=== PATIENT | female | born 1935 | race Caucasian/White ===

== ENCOUNTER 2023-05-15 17:31 | Emergency (ER) | payer OTHER, SELFPAY ==
[2023-05-15 17:35] VITALS: BMI 26.5
[2023-05-15 17:38] VITALS: BP 151/75
[2023-05-15 19:59] VITALS: BP 135/78
[2023-05-15] MEDS: TYLENOL 650 MG PO (22:15)
--- NOTE | 2023-05-15 22:20 | ED.GENMED ---
History of Present Illness
General
Chief Complaint: Fall
Source: patient
Exam Limitations: none
Time Seen by Provider: 05/15/23 19:54
Nursing documentation reviewed up to this point in time: agreed with
Travel History
Have you had any contact with someone who has COVID-19?: No
Do you have any symptoms of coronavirus? Fever > 100 degrees, chills, cough, shortness of breath, sore throat, loss of taste or smell, muscle aches, or headache?: No
History of Present Illness
History of Present Illness:
Patient presents to ED after slipping and losing balance, and falling forward. Patient presents with small laceration in her left forehead as well as a lip laceration, along with chipped tooth. Denies loss of consciousness. Denies neck pain.
Denies chest pain. Denies shortness of breath. Denies nausea or vomiting. Denies loss of sensation or weakness. Denies blurred vision. Denies dizziness.
Review of Systems
Review of Systems
Allergies reviewed?: Yes
All Other Systems: ROS reviewed and negative except as documented in HPI and ROS
Constitutional: Reports no symptoms
EENT: Reports no symptoms
Respiratory: Reports no symptoms; Denies trouble breathing
Cardiac: Reports no symptoms; Denies chest pain
ABD/GI: Reports no symptoms; Denies nausea or vomiting
: Reports no symptoms
Musculoskeletal: Reports no symptoms
Skin: Reports other (Laceration, abrasion, broken tooth)
Neurological: Reports no symptoms; Denies dizzy, headache or weakness
Phy Exam
Physical Exam
Physical Exam:
Physical Exam
General: no apparent distress, not acutely ill. afebrile.
Head: eomi. an approx 1cm linear, superficial laceration lateral to left eyebrow, without active bleeding.
Neck: supple. no meningeal signs.
Heart: s1/s2 regular rate and rhythm, no murmur. equal radial pulses.
Lungs: no acute respiratory distress. clear bilaterally
Abdomen: normal bowel sounds. not tender.
Neuro: alert and oriented. no focal neurological deficits
Skin: an abrasion noted over left lower lip, without separation, but with swelling. #10 tooth fracture noted.
Psychiatric: well kept. interactive and cooperative
Extremities: no edema. no calf tenderness.
Course
Orders/Labs/Results
Orders:
Orders
05/15/23 20:07
CT Head W/o Iv Contrast Urgent
Comment:
Reason For Exam: trauma
05/15/23 22:02
Acetaminophen [Tylenol] 650 mg PO NOW STA
Vital Signs
Initial and Last Documented VS:
Initial Vital Signs
Temp Pulse Resp BP Pulse Ox
98.9 F 91 18 151/75 97
05/15/23 17:38 05/15/23 17:38 05/15/23 17:38 05/15/23 17:38 05/15/23 17:38
Last Documented Vital Signs
Temp Pulse Resp BP Pulse Ox
98.9 F 68 19 135/78 100
05/15/23 17:38 05/15/23 22:35 05/15/23 19:59 05/15/23 19:59 05/15/23 22:35
Procedures
Laceration Closure
Left Lateral Forehead:
Status of Wound: clean
Size of Wound in cm: 1
Description of Wound Edges: sharp
Preparation: cleaned with saline
Revision/Debridement: routine- no revision
Type of Closure: single layer closure and Dermabond-skin glue
MDM/Problems Addressed
MDM/Problems Addressed:
Wound well-approximated with application of Dermabond. Lip laceration/abrasion, no indication for suture repair, as there is no significant separation.
CT head: No acute findings.
Patient was advised to follow-up with PCP for reevaluation, along with dentist reevaluation for tooth fracture. Patient expresses understanding time of discharge, to the care of her friend.
*Critical Care Note
Total Time (30-74mins, 75-104mins- exclusive of procedures): Not Applicable
ED Attending Note
-
Portions of this chart may have been created with voice recognition software.� Occasional wrong word or��sound alike� substitutions may have occurred due to the inherent limitations of voice recognition software.
Discharge Plan
Departure
Patient Disposition: Home (Routine Discharge)
Date of Disposition: 05/15/23
Time of Disposition: 22:20
Patient with high blood pressure during this ER visit?: Yes
Condition: Good
Discharge Problem:
Head injury, Forehead laceration, Laceration of lip, Fracture of tooth
Instructions: Laceration Repair With Glue (DC), Head Injury in Adults (DC), Fractured Tooth (DC), Skin Abrasions (DC)
Referrals:
Bhumika Awad DO [Family Provider] -
Activity Restrictions/Additional Instructions:
As discussed, please follow up with your primary care physician with any further concerns.
Interventions
Interventions:
*Risk Screen - Suicide Last Done: 05/15/23 17:53
*General Assessment Last Done: 05/15/23 17:45
*Neglect/Abuse Screening Last Done: 05/15/23 17:53
*ED COVID-19 Vaccine History Last Done: 05/15/23 17:45
*Nursing Disposition Last Done: 05/15/23 22:35
ED- Neurological Assessment Last Done: 05/15/23 17:51
ED-Skin Assessment Last Done: 05/15/23 18:00
Discharge Date and Time
Discharge Date/Time: 05/15/23 22:36
== END 2023-05-15 22:36 | disposition home or self-care (01) ==
LOC: EMR 17:31
PROVIDERS: EMERGENCY PHYSICIAN Emergency Medicine; FAMILY PHYSICIAN Family Medicine
DX: S01.511A Laceration without foreign body of lip, initial encounter (principal); S01.81XA Laceration without foreign body of other part of head, initial encounter; S02.5XXA Fracture of tooth (traumatic), initial encounter for closed fracture; W01.0XXA Fall on same level from slipping, tripping and stumbling without subsequent striking against object, initial encounter; I10 Essential (primary) hypertension
CPT/HCPCS: 99284; 12011; 70450